=== PATIENT | male | born 1950 | race Caucasian/White ===

== ENCOUNTER 2020-01-18 15:38 | Emergency (ER) | payer OTHER ==
[~2020-01-18] VITALS: Ht 167.6 cm; Wt 83.9 kg
[2020-01-18 15:49] VITALS: BP_SYST 152
--- NOTE | 2020-01-18 15:50 | NUR ---
Patient to ER bed 3 to gown for evaluation. Side rails up.
--- NOTE | 2020-01-18 16:00 | NUR ---
PT AAO AND AMBULATORY C/O A RECENT CHANGE IN HIS VOICE AND THAT HE IS HOARSE. PT IS ACCOMPANIED BY FAMILY WHO IS TRANSLATING. PT IN NO ACUTE DISTRESS. V/S STABLE.
--- NOTE | 2020-01-18 16:20 | NUR ---
DR. FARRIS AT BEDSIDE EVALUATING PT STATUS.
[2020-01-18 16:46] VITALS: BP_SYST 152
--- NOTE | 2020-01-18 16:48 | NUR ---
Patient given written and verbal discharge instructions and verbalizes understanding. DR. KALEIGH CLANCY MD discussed with patient the results and treatment provided. Patient in stable condition. ID arm band removed. Rx of PREDNISONE given. Patient educated on pain management and to follow up with PMD. Pain Scale 0/10. Opportunity for questions provided and answered. Medication side effect fact sheet provided.
== END 2020-01-18 16:48 | disposition home or self-care (01) ==
LOC: SED 15:38
DX: J02.9 Acute pharyngitis, unspecified (principal); I10 Essential (primary) hypertension; F17.200 Nicotine dependence, unspecified, uncomplicated
CPT/HCPCS: 99283

== ENCOUNTER 2023-06-01 16:16 | Emergency (ER) | payer MEDICAID, OTHER ==
[~2023-06-01] VITALS: Ht 167.6 cm; Wt 99.3 kg
[2023-06-01 16:16] VITALS: BP_SYST 157; PULSE 68; RESP 17; TEMP 98.2; O2SAT 98
[2023-06-01 16:56] LABS: BASOPHILS % (AUTO) 0.3 % (0.0-2.0); EOSINOPHILS # (AUTO) 0.3 K/uL (0.0-0.4); EOSINOPHILS % (AUTO) 4.1 % (0.0-4.0); HEMATOCRIT 38.5 % (36-54); LYMPHOCYTES # (AUTO) 2.3 K/uL (1.0-5.5); LYMPHOCYTES % (AUTO) 32.8 % (20.5-51.5); MEAN CORPUSCULAR HEMOGLOBIN 29 pg (27-31); MEAN CORPUSCULAR HGB CONC 34 % (32-36); MEAN CORPUSCULAR VOLUME 86 fL (79.0-98.0); MONOCYTES # (AUTO) 0.7 K/uL (0.0-1.0); MONOCYTES % (AUTO) 10.3 % (1.7-9.3); NEUTROPHILS # (AUTO) 3.7 K/uL (1.8-7.7); NEUTROPHILS % (AUTO) 52.5 % (40.0-70.0); PLATELET COUNT (AUTO) 214 K/uL (130-430); RED BLOOD CELL COUNT(AUTO) 4.49 MIL/uL (4.2-6.2)
[2023-06-01] MEDS: NACL 0.9% 1,000 ML IV ONE (17:01)
[2023-06-01 17:03] LABS: ANION GAP 7 (5-15); CALCIUM 9.1 mg/dL (8.4-11.0); CARBON DIOXIDE 31 mmol/L (23-29); CHLORIDE 101 mmol/L (98-107); CREATININE 1.05 mg/dL (0.55-1.30); GLUCOSE 88 mg/dL (74-106); POTASSIUM 4.1 mmol/L (3.5-5.1); SODIUM SERUM 139 mmol/L (136-145); UREA NITROGEN, BLOOD 13 mg/dL (8-21)
[2023-06-01 17:06] LABS: PROTHROMBIN TIME 10.5 SECS (9.5-12.5)
[2023-06-01 17:10] LABS: ALANINE AMINOTRANSFERASE 16 U/L (12-78); ALBUMIN 3.7 g/dL (3.4-4.8); ASPARTATE AMINOTRANSFERASE 25 U/L (10-37); BILIRUBIN,DIRECT 0.1 mg/dL (0.0-0.3); TOTAL BILIRUBIN 0.3 mg/dL (0.0-1.0); TOTAL PROTEIN, SERUM 7.6 g/dL (6.4-8.3)
[2023-06-01] MEDS: TENECTEPLASE 50 MG VIAL IV ONE (17:19)
[2023-06-01] MEDS: NS 500 ML IV ONE (17:48)
[2023-06-01 18:20] VITALS: BP_SYST 115; PULSE 69; RESP 24; TEMP 98; O2SAT 95
== END 2023-06-01 18:20 | disposition short-term general hospital (02) ==
LOC: SED 16:16
DX: I63.9 Cerebral infarction, unspecified (principal); I10 Essential (primary) hypertension; R41.82 Altered mental status, unspecified; F17.200 Nicotine dependence, unspecified, uncomplicated; Z98.890 Other specified postprocedural states
CPT/HCPCS: 99291; 70450; 96374; 71045; 96361; 80076; 80048; 83880; 85025; 85610; 85730; 84484; 36415; 93005; 70496; 70498; J7030; J3101